=== PATIENT | female | born 1945 | race Caucasian/White ===

== ENCOUNTER → 2023-12-22 12:48 | Outpatient (REF) | payer MEDICARE, MEDICAID, SELFPAY | LOC: LABSPEC 12:48 | PROVIDERS: Referring Provider Dermatology; Visit Provider Dermatology | DX: L08.89 Other specified local infections of the skin and subcutaneous tissue (principal) | CPT/HCPCS: 87070; 87077; 87186; 87205 ==

== ENCOUNTER → 2023-12-22 | Outpatient (CLI) | payer MEDICARE, MEDICAID, SELFPAY | END | disposition home or self-care (01) | PROVIDERS: Referring Provider Dermatology; Visit Provider Dermatology | DX: L08.89 Other specified local infections of the skin and subcutaneous tissue (principal) | CPT/HCPCS: 87070; 87077; 87186; 87205 ==